=== PATIENT | female | born 1945 | race African-American/Black ===

== ENCOUNTER → 2020-07-20 | Outpatient (CLI) | payer OTHER ==
[~2020-07-20] MED LIST: BENTYL 10 MG CA10 M1 PO; CARAFATE 1 GM TA1 GM PO; CARVEDILOL25 MG PO; ELIQUIS5 MG PO; FUROSEMIDE 20 M20 MG PO; KLOR-CON M2020 MEQ PO; MAGNESIUM30 MG PO; ZESTRIL5 MG PO; ZYLOPRIM300 MG PO
== END ==
LOC: LAB 14:03
PROVIDERS: ATTEND Internal Medicine Gastroenterology
DX: Z01.812 Encounter for preprocedural laboratory examination (principal); Z20.828 Contact with and (suspected) exposure to other viral communicable diseases

== ENCOUNTER → 2020-07-25 | Outpatient (CLI) | payer OTHER ==
[~2020-07-25] VITALS: Ht 165.1 cm; Wt 108.9 kg
--- NOTE | 2020-07-27 16:06 | PATH ---
[facility] [address] [place] [address] PATHOLOGY RPT PROCEDURE Name: NOBLE SHOOK Room #: REG [facility] [place].#: [id number] Admission: 07/25/20 Date of : 45 Discharge: Report #: [id number] Path Case #: [id number] [facility] Accession Number: [id number] . 01 Material submitted: . stomach - BX OF ANTRUM . 01 Clinical history: . DYSPHAGIA, R/O H PYLORI . 02 Diagnosis: Gastric mucosa, antrum, rule out H. pylori, endoscopic biopsy: - Mild reactive gastropathy. - Negative for intestinal metaplasia or atrophy. - Negative for Helicobacter pylori (properly controlled immunohistochemical stain performed). (IUV:second class welder; 07/27/2020) MBR 07/27/2020 1351 Local . 02 Electronically signed: . Cathryn Pascual MD, Pathologist NPI- [id number] . 01 Gross description: . The specimen is received in formalin, labeled "Noble Shook, biopsy of antrum, R/O H. pylori". Received are two segments of pale crenshaw soft tissue measuring 0.4 cm each in maximum dimensions. The specimen is submitted entirely in cassette A1. (CAA; 07/26/2020) QAC/QAC 07/26/2020 1620 Local . 02 Pathologist provided ICD-10: K31.9 . 02 CPT . 613071, [id number] Specimen Comment: A courtesy copy of this report has been sent to [phone] Specimen Comment: [phone] Specimen Comment: Report sent to / DR CLAYTON Performed at: [address] [id number] MD Josue Lilly MD Phone: [phone] Performed at: [address] [id number] [address] [address] PATHOLOGY RPT PROCEDURE Name: NOBLE SHOOK Room #: REG [facility] [place]#: [id number] Admission: 07/25/20 Date of : 45 Discharge: Report #: [id number] Path Case #: [id number] MD Cahtryn Pascual MD Phone: [phone]
== END | disposition home or self-care (01) ==
LOC: GI 08:09
PROVIDERS: ATTEND Internal Medicine Gastroenterology
DX: R13.10 Dysphagia, unspecified (principal); K31.9 Disease of stomach and duodenum, unspecified; K22.2 Esophageal obstruction; K29.70 Gastritis, unspecified, without bleeding; K44.9 Diaphragmatic hernia without obstruction or gangrene; R12 Heartburn; K21.9 Gastro-esophageal reflux disease without esophagitis; M10.9 Gout, unspecified; Z98.890 Other specified postprocedural states; Z79.899 Other long term (current) drug therapy; Z85.038 Personal history of other malignant neoplasm of large intestine; Z95.810 Presence of automatic (implantable) cardiac defibrillator; Z79.01 Long term (current) use of anticoagulants
CPT/HCPCS: 62110; 62900

== ENCOUNTER → 2021-07-17 | Outpatient (CLI) | payer OTHER ==
[~2021-07-17] VITALS: Ht 167.6 cm; Wt 106.6 kg
[~2021-07-17] MED LIST changes: +METOCLOPRAMIDE10 MG PO; +ONDANSETRON HCL4 M2 PO
--- NOTE | 2021-07-19 15:08 | PATH ---
[facility] [address] [place] [address] PATHOLOGY RPT PROCEDURE Name: NOBLE SHOOK Arielle Room #: REG [facility].#: [id number] Admission: 07/17/21 Date of : 45 Discharge: Report #: [id number] Path Case #: [id number] [facility] Accession Number: [id number] . 01 Material submitted: . duodenum - DUODENAL BIOPSY RULE OUT CELIAC . 01 Clinical history: . DTS/EGD/DYSPHAGIA . 02 Diagnosis: Duodenal mucosa, duodenal, biopsy: - Intact normal villous architecture. - There is no increase in intraepithelial lymphocytes. . (SCA:mml; 07/19/2021) QL 07/19/2021 1039 Local . 02 Electronically signed: . Gerard Longo DO, Pathologist NPI- [id number] . 01 Gross description: . The specimen is received in formalin, labeled "Slay, Noble, duodenal biopsy". Received is a single segment of pale crenshaw tissue measuring 0.4 cm in maximum dimensions. The specimen is submitted entirely in cassette A1. ([facility]; 07/18/2021) NRI/NRI 07/18/2021 1920 Local . 02 Pathologist provided ICD-10: R13.10 . 02 CPT . 132371 Specimen Comment: A courtesy copy of this report has been sent to [phone] Specimen Comment: [phone] Specimen Comment: Report sent to / DR CLAYTON Performed at: 01 [facility] [address] [id number] MD Angel Berman MD Phone: [phone] Performed at: 02 [facility] [address] [id number] MD Jason Gallo MD Phone: [phone]
== END | disposition home or self-care (01) ==
LOC: GI 10:19
PROVIDERS: ATTEND Internal Medicine Gastroenterology
DX: R13.10 Dysphagia, unspecified (principal); K22.2 Esophageal obstruction; K44.9 Diaphragmatic hernia without obstruction or gangrene; K21.9 Gastro-esophageal reflux disease without esophagitis; R12 Heartburn; M19.90 Unspecified osteoarthritis, unspecified site; M10.9 Gout, unspecified; Z98.890 Other specified postprocedural states; Z79.899 Other long term (current) drug therapy; Z20.822 Contact with and (suspected) exposure to COVID-19
CPT/HCPCS: 62110; 62900